=== PATIENT | male | born 2000 | race Caucasian/White ===

== ENCOUNTER 2023-08-23 23:39 | Emergency (ER) | payer OTHER, SELFPAY ==
[2023-08-23 23:42] VITALS: BP 150/98; PULSE 104; RESP 15; TEMP 37.1; O2SAT 100
[2023-08-24] VITALS (21 sets, daily range): BP systolic 103–121; BP diastolic 55–84; PULSE 59–66; RESP 17; O2SAT 96–100
[2023-08-24 00:16] LABS: Basophils Percent Auto 0.1 % (0.2-1.2); Eosinophils Percent Auto 0.1 % (0-4.4); Hematocrit 48.1 % (42.0-52.0); Hemoglobin 16.6 g/dL (14.0-18.0); Immature Granulocyte Absolute 0.04 K/mm3 (0.00-0.031); Immature Granulocyte Percent A 0.3 % (0-0.5); Lymphocytes Absolute Auto 0.98 K/mm3 (0.9-3.2); Lymphocytes Percent Auto 7.2 % (18.3-44.2); Mean Corpuscular HGB Conc 34.5 g/dl (32-36); Mean Corpuscular Hemoglobin 32.1 pg (26-34); Mean Platelet Volume 11.4 fl (7.4-10.4); Monocytes Absolute Auto 0.5 K/mm3 (0.1-0.6); Monocytes Percent Auto 3.7 % (2.6-8.5); Neutrophils Absolute Auto 12.1 K/mm3 (1.3-6.7); Neutrophils Percent Auto 88.6 % (45.5-73.1); Platelet Count Result 245 k/mm3 (150-375); Red Blood Count 5.17 M/mm3 (4.6-6.20); Red Cell Distribution Width 11.5 % (11.5-14.5); White Blood Count 13.6 K/mm3 (4.5-10.0)
[2023-08-24 00:25] LABS: Alanine Aminotransferase 30 U/L (6-50); Alkaline Phosphatase 103 U/L (38-126); Anion Gap 12 mmol/L (4-12); Aspartate Amino Transferase 29 U/L (17-59); Bilirubin,Total 0.8 mg/dL (0.2-1.3); Blood Urea Nitrogen 13 mg/dL (9-20); Calcium 9.7 mg/dL (8.4-10.2); Carbon Dioxide 26 mmol/L (22-30); Chloride 104 mmol/L (98-107); Estimated CRCL calculation 166 ml/min; Estimated Glomerular Filt Rate > 60; Glucose 114 mg/dL (65-110); Lipase 75 U/L (23-300); Sodium 142 mmol/L (137-145)
[2023-08-24 00:51] LABS: Influenza A QL RT-PCR Negative (Negative); Influenza B QL RT-PCR Negative (Negative); RSV RNA, RT-PCR Negative (Negative); SARS-CoV-2 RNA PCR Negative (Negative)
[2023-08-24] MEDS: SODIUM CHLORIDE 0.9% IV 2,000 ML 999 ML IV CONT (02:02)
[2023-08-24] MEDS: ONDANSETRON INJ 4 MG/2 ML VIAL IV PUSH (02:02)
[2023-08-24] MEDS: FAMOTIDINE 20 MG/2 ML VIAL IV PUSH (02:02)
[2023-08-24 02:22] LABS: Appearance Urine Cloudy (Clear); Bacteria Urine 2+ /hpf; Bilirubin Urine Negative (Negative); Blood Urine Negative (Negative); Color Urine Dark Yellow (Yellow); Glucose Urine UA Negative (Negative); Ketones Urine 4+ mg/dL (Negative); Leukocyte Esterase Ur Negative LEU/UL (Negative); Need Manual Microscopic Reviewed; Nitrate Urine Negative (Negative); Protein Urine 1+ mg/dL (Negative); RBC Urine 0-2 /hpf (0-2); Specific Grav Ur 1.033 (1.001-1.035); Squamous Epithelial Cell Urine Moderate /hpf (Few); WBC Urine 0-5 /hpf (0-3)
[2023-08-24 02:23] LABS: Add Urine Microscopic? YES
--- NOTE | 2023-08-24 02:25 | ED.GENADULT ---
HPI - General Adult General Chief complaint: Nausea/Vomiting/Diarrhea Stated complaint: N/V Time Seen by Provider: 08/24/23 00:47 History of Present Illness HPI narrative: this is a 22-year-old male transitioning female presenting with nausea and vomiting. Symptoms started earlier today. Numerous episodes of vomiting. Unable to keep down water. Patient is a daily marijuana user. Been seen in the emergency room multiple times for similar presentations. Never been diagnosed with cannabinoid hyperemesis. No abdominal pain, fevers chest pain difficulty breathing or urinary symptoms. Related Data Home Medications Medication Instructions Recorded Confirmed dextroamphetamine-amphetamine ER PO 08/24/23 10 mg 24hr capsule,extend release (Adderall XR) estradiol 2 mg tablet mg 08/24/23 progesterone micronized 100 mg mg 08/24/23 capsule spironolactone 50 mg tablet mg 08/24/23 Allergies Allergy/AdvReac Type Severity Reaction Status Date / Time risperidone AdvReac Muscle Verified 08/23/23 23:48 Spasms Exam Narrative: APPEARANCE: No apparent distress. Head: atraumatic. EYES: EOMI, NOSE: Atraumatic NECK: Trachea midline RESPIRATORY: No increased rate of breathing CARDIOVASCULAR: RRR, ABDOMINAL: Non-distended Soft nontender no guarding or rebound MUSCULOSKELETAl: No obvious deformities NEURO: Alert. Moving 4/4 extremities SKIN:: Warm, dry. Normal color PSYCHIATRIC: Normal affect Course Vital Signs Vital signs: Vital Signs Temperature 98.7 F 08/23/23 23:42 Pulse Rate 104 H 08/23/23 23:42 Respiratory Rate 15 08/23/23 23:42 Blood Pressure 150/98 H 08/23/23 23:42 Pulse Oximetry 100 08/23/23 23:42 Oxygen Delivery Room Air 08/23/23 23:42 Temperature 98.7 F 08/23/23 23:42 Pulse Rate 59 L 08/24/23 04:31 Respiratory Rate 17 08/24/23 04:31 Blood Pressure 121/72 08/24/23 04:31 Pulse Oximetry 98 08/24/23 04:31 Oxygen Delivery Room Air 08/23/23 23:42 Medical Decision Making [facility] Narrative Medical decision making narrative: -Course: 22-year-old presenting with nausea and vomiting. Patient given 2 L normal saline Zofran Pepcid with some improvement. Was able to tolerate p.o. that time but still had some abdominal discomfort. Given Compazine and Benadryl. Patient has been resting comfortably and is ready to go home. She she is requesting a prescription for Zofran which was provided. Discharged with return precautions. -DDX includes but is not limited to: Cannabinoid hyperemesis, gastritis, gastroenteritis -Co-morbidities complicating care: hormone replacement therapy, daily marijuana use -Independent interpretation of studies: white count 13.6. Metabolic panel unremarkable. Urinalysis positive for ketones. UDS positive for cannabinoids and amphetamines. Viral swabs negative -Dx tests considered but not ordered: CT abdomen pelvis-benign abdominal exam, chronic issue -Interventions: 2 L normal saline, Pepcid, Zofran, Compazine, Benadryl -Shared decision making / Disposition: discharged -RX Zofran Vital Signs Vital Signs: Vital Signs Temperature 98.7 F 08/23/23 23:42 Pulse Rate 104 H 08/23/23 23:42 Respiratory Rate 15 08/23/23 23:42 Blood Pressure 150/98 H 08/23/23 23:42 Pulse Oximetry 100 08/23/23 23:42 Oxygen Delivery Room Air 08/23/23 23:42 Temperature 98.7 F 08/23/23 23:42 Pulse Rate 59 L 08/24/23 04:31 Respiratory Rate 17 08/24/23 04:31 Blood Pressure 121/72 08/24/23 04:31 Pulse Oximetry 98 08/24/23 04:31 Oxygen Delivery Room Air 08/23/23 23:42 Lab Data 08/24/23 00:09 08/24/23 00:09 Labs: Lab Results 08/24/23 08/24/23 08/24/23 Range/Units 00:08 00:09 00:10 WBC 13.6 H (4.5-10.0) K/mm3 RBC 5.17 (4.6-6.20) M/mm3 Hgb 16.6 (14.0-18.0) g/dL Hct 48.1 (42.0-52.0) % MCV 93.0 (80-100) fl MCH 32.1 (26-34) pg MCHC 34.5 (32-36) g/dl
[2023-08-24 03:27] LABS: Barbiturate Screen Urine Negative (Negative); Benzodiazepines Screen Urine Negative (Negative)
[2023-08-24 03:38] LABS: Amphetamine Screen Urine Positive (Negative); Cocaine Screen Urine Negative (Negative); Methadone Screen Urine Negative (Negative); Opiate Screen Urine Negative (Negative); Phencyclidine Screen Urine Negative (Negative)
[2023-08-24 03:57] LABS: Cannabinoid Screen Urine Positive (Negative)
[2023-08-24] MEDS: MAG HYDROX/AL HYDROX/SIMETH 30 ML UDC PO (04:03)
--- NOTE | 2023-08-24 04:05 | PC.NURSE ---
Patient stated they wanted to wait for the maalox to work before trying the benadryl and compazine.
[2023-08-24] MEDS: diphenhydrAMINE HCl INJ 50 MG/ML VIAL 25 MG IV PUSH (04:32)
[2023-08-24] MEDS: PROCHLORPERAZINE EDISYLATE 10 MG/2 ML VIAL IV PUSH (04:32)
--- NOTE | 2023-08-24 04:41 | PC.NURSE ---
Patient able to keep sips of water down, no episodes of vomiting in the ED.
== END 2023-08-24 05:37 | disposition home or self-care (01) ==
PROVIDERS: Emergency Provider Emergency Medicine
DX: R11.2 Nausea with vomiting, unspecified (principal); F64.0 Transsexualism; Z79.890 Hormone replacement therapy
CPT/HCPCS: 36415; 80053; 80307; 81001; 83690; 85025; 87637; 96361; 96374; 96375; 99284; A9270; J0780; J1200; J2405; J7030